=== PATIENT | female | born 1960 | race Caucasian/White ===

== ENCOUNTER → 2018-06-13 18:07 | Outpatient (CLI) | payer BC | END | disposition home or self-care (01) | LOC: D.MAMMO 11:45 | DX: N63.12 Unspecified lump in the right breast, upper inner quadrant (principal) ==

== ENCOUNTER → 2018-06-27 09:50 | Outpatient (CLI) | payer BC | END | disposition home or self-care (01) | LOC: D.US 09:50 | DX: N63.11 Unspecified lump in the right breast, upper outer quadrant (principal) ==

== ENCOUNTER 2019-10-09 09:00 | Outpatient (CLI) | payer BC | END 2019-10-09 10:00 | disposition home or self-care (01) | LOC: D.MAMMO 09:00 | PROVIDERS: ATTEND Nurse Practitioner Family | DX: Z12.31 Encounter for screening mammogram for malignant neoplasm of breast (principal) ==

== ENCOUNTER → 2019-12-05 08:49 | Outpatient (CLI) | payer BC | END | disposition home or self-care (01) | LOC: D.NM 11-28 10:15 | PROVIDERS: ATTEND Family Medicine | DX: E83.52 Hypercalcemia (principal); E21.3 Hyperparathyroidism, unspecified ==

== ENCOUNTER 2021-03-04 14:45 | Outpatient (CLI) | payer BC | END 2021-03-04 23:59 | disposition home or self-care (01) | LOC: D.MAMMO 14:45 | PROVIDERS: ATTEND Family Medicine | DX: Z12.31 Encounter for screening mammogram for malignant neoplasm of breast (principal) ==